=== PATIENT | female | born 1980 | race Caucasian/White ===

== ENCOUNTER 2016-12-18 11:10 | Emergency (ER) | payer MEDICARE, BC ==
[~2016-12-18] VITALS: Wt 72.0 kg
[~2016-12-18 11:10] MED LIST: [UNRECOGNIZED DRUG - REMARK]
[2016-12-18] MEDS ORDERED: morphine 10 MG INJ IM ONE (12:00)
[2016-12-18] MEDS ORDERED: HYDR25SU23 PR (12:25)
--- NOTE | 2016-12-18 15:34 | ERD ---
ER Documentation Chief Complaint Date/Time DATE: 12/18/16 TIME: 15:30 Chief Complaint RECTAL PAIN AND HEMMRHOIDS FOR THE PAST 24 HOURS. HPI 36-year-old female with a past medical history of hemorrhoids presents to the ED complaining of rectal pain that has worsened in the last 24 hours. The daughter was with patient at this time and stated that patient had an incision and drainage of the hemorrhoid yesterday at [facility]. Patient was discharged with a prescription for clindamycin, Guys, Colace. States that the pain has not improved. Describes pain as pulsating and rates it a 8 out of 10. Denies any fever, chills, abdominal pain, nausea, vomiting, melena, bloody stools, hemoptysis, chest pain, shortness of breath. States that she had a normal bowel movement the day before yesterday. States that her last menses was November 28, 2016. ROS All systems reviewed and are negative except as per history of present illness. Medications Home Meds Active Scripts Hydrocortisone Acetate (Anusol-Hc) 25 Mg Supp.rect, 1 SUPP NM BID Y for HEMORROID PAIN/ITCHING, #12 SUPP.RECT Prov:STEVEN PARK PA-C 12/18/16 Reported Medications [Medicine For Nails] No Conflict Check 09/02/12 Allergies Allergies: Coded Allergies: No Known Drug Allergies (Verified Allergy, Unknown, 12/08/14) PMhx/Soc History of Surgery: Yes (TONSILLECTOMY,, gastric Bypass.) Anesthesia Reaction: No Hx Neurological Disorder: No Hx Respiratory Disorders: No Hx Cardiac Disorders: No Hx Psychiatric Problems: No Hx Miscellaneous Medical Probl: No Hx Alcohol Use: Yes (OCCASIONAL) Hx Substance Use: No Hx Tobacco Use: No Smoking Status: Never smoker Physical Exam Vitals Vital Signs Date Time Temp Pulse Resp B/P Pulse Ox O2 Delivery O2 Flow Rate FiO2 12/18/16 11:13 98.6 88 21 112/57 98 Physical Exam Const: Vil-[id number], well-nourished. In no acute distress. Head: Atraumatic, normocephalic Eyes: Normal Conjunctiva without injection. No purulent discharge. ENT: Normal external ear, nose. Moist oropharynx without tonsillar exudates. Non -erythematous pharynx. Uvula midline. No drooling. No trismus. Neck: No cervical midline tenderness. Full range of motion. No meningismus. No cervical lymphadenopathy. No JVD. Resp: Clear to auscultation bilaterally. No wheezing, rhonchi, rales, or crackles. No accessory muscle use. No retractions. Cardio: Regular rate and rhythm. No murmurs, rubs or gallops. Abd: Soft, nontender to palpation, non distended. Normal bowel sounds. No palpable masses. No rebound tenderness. No guarding. Negative McBurney's point. Negative psoas sign. Negative obturator sign. Skin: No petechiae or rashes Back: No midline tenderness. No CVA tenderness. Ext: No cyanosis, or edema. Neur: Awake and alert. Normal gait. Normal coordination. Psych: Normal Mood and Affect Results 24 hrs Current Medications Medications (Trade) Dose Ordered Sig/Shara Route PRN Reason Start Time Stop Time Status Last Admin Dose Admin Morphine Sulfate (morphine) 6 mg ONCE ONCE IM 12/18/16 12:00 12/18/16 12:01 DC 12/18/16 12:13 Procedures/MDM 28-year-old female with a past medical history of hemorrhoids presents to the ED complaining o the same rectal pain she has had after the incision and drainage received yesterday at [facility]. Patient is afebrile and nontoxic-appearing. Patient's rectal exam showed a 3 x 2 cm hemorrhoid noted that is external and thrombosed. There is an incision site noted with no purulent discharge, bleeding noted. Patient has tenderness to palpation of this hemorrhoid. Low suspicion for anal fissure, perianal abscess, GI bleeding , appendicitis, bowel obstruction diverticulitis, or other emergent conditions. Since patient's hemorrhoid is already incised and drained, there is no indication for further treatment here in the ED. Patient was treated here in the ED with 6 mg IM morphine with improvement of her pain. I strictly instructed patient that she needs to follow-up with a general surgeon for further care and treatment. Discharge medications: Anusol. Strictly instructed patient to continue taking clindamycin and complete the course of antibiotics. Patient has already received Colace and Guys for her pain. Follow up with primary care physician in 1-2 days. Instructed patient to return to the ED sooner for any worsening symptoms. Patient's questions were answered. Patient understood and agreed with discharge plan. Patient discharged stable. Departure Diagnosis: Primary Impression: Acute hemorrhoid Condition: Stable Patient Instructions: Treating Hemorrhoids: Self-Care, Thrombosed Hemorrhoids, Treating Hemorrhoids: Surgery Referrals: CHARLY GUILLEN M.D., MATTHEW A. MD [facility] YOU HAVE RECEIVED A MEDICAL SCREENING EXAM AND THE RESULTS INDICATE THAT YOU DO NOT HAVE A CONDITION THAT REQUIRES URGENT TREATMENT IN THE EMERGENCY DEPARTMENT. FURTHER EVALUATION AND TREATMENT OF YOUR CONDITION CAN WAIT UNTIL YOU ARE SEEN IN YOUR DOCTORS OFFICE WITHIN THE NEXT 1-2 DAYS. IT IS YOUR RESPONSIBILITY TO MAKE AN APPOINTMENT FOR FOLOW-UP CARE. IF YOU HAVE A PRIMARY DOCTOR --you should call your primary doctor and schedule an appointment IF YOU DO NOT HAVE A PRIMARY DOCTOR YOU CAN CALL OUR PHYSICIAN REFERRAL HOTLINE AT IF YOU CAN NOT AFFORD TO SEE A PHYSICIAN YOU CAN CHOSE FROM THE FOLLOWING [facility] [address] [facility]. [facility] [address] [address] [facility] [facility] [address] [facility] [address] [facility] [address] [facility]. [facility]. [address] [facility]. [facility] YOU HAVE RECEIVED A MEDICAL SCREENING EXAM AND THE RESULTS INDICATE THAT YOU DO NOT HAVE A CONDITION THAT REQUIRES URGENT TREATMENT IN THE EMERGENCY DEPARTMENT. FURTHER EVALUATION AND TREATMENT OF YOUR CONDITION CAN WAIT UNTIL YOU ARE SEEN IN YOUR DOCTORS OFFICE WITHIN THE NEXT 1-2 DAYS. IT IS YOUR RESPONSIBILITY TO MAKE AN APPOINTMENT FOR FOLOW-UP CARE. IF YOU HAVE A PRIMARY DOCTOR --you should call your primary doctor and schedule and appointment IF YOU DO NOT HAVE A PRIMARY DOCTOR YOU CAN CALL OUR PHYSICIAN REFERRAL HOTLINE AT . IF YOU CAN NOT AFFORD TO SEE A PHYSICIAN YOU CAN CHOSE FROM THE FOLLOWING [facility] INSTITUTIONS: [facility] [address] [place] [address] [facility] [address] [place] [address] [facility] [address] [place] [address] [facility] URGENT CARE/SPECIALTIES Additional Instructions: Visite a mondragon mdkesha maxwell para un EXAMEN para un referido a un cirujano general. Regrese a estas instalaciones si no se mejora giancarlo esperbamos o giancarlo le dijimos. STEVEN PARK PA-C Dec 18, 2016 15:34
== END 2016-12-18 12:28 | disposition home or self-care (01) ==
LOC: FTE 11:10
DX: K64.9 Unspecified hemorrhoids (principal)
CPT/HCPCS: 96372; 99284; J2270